=== PATIENT | male | born 1950 | race Hispanic/Latino ===

== ENCOUNTER 2021-11-02 06:58 | Outpatient (CLI) | payer BC, OTHER ==
--- NOTE | 2021-11-02 08:31 | Cat Scan Report ---
CT CHEST WITHOUT CONTRAST INDICATION / CLINICAL INFORMATION: Z87.891 F71.21. 20+ year smoking history. TECHNIQUE: Axial CT images were obtained through the chest without contrast. All CT scans at this [facility] ation are performed using CT dose reduction for ALARA by means of automated exposure control. COMPARISON: None available. FINDINGS: HEART: No significant abnormality. CORONARY ARTERY CALCIFICATION: Moderate to severe THORACIC AORTA: Mild atherosclerotic calcification without acute abnormality. MEDIASTINUM / TOM: No significant abnormality. PLEURA: No pleural effusion. No pneumothorax. LUNGS: Mild centrilobular and paraseptal emphysematous changes are identified which are most pronounc ed in the upper lung zones. No evidence for acute parenchymal disease, interstitial disease, nodule o r mass. ADDITIONAL FINDINGS: None. UPPER ABDOMEN: No significant abnormality. SKELETAL SYSTEM: No significant abnormality. IMPRESSION: 1. Mild emphysematous changes. No suspicious pulmonary lesion is detected. 2. Moderate to severe coronary artery calcifications. Signer Name: Rah Grimes Jr, MD Signed: 11/02/2021 8:27 AM Workstation Name: [id number]
== END 2021-11-02 06:59 | disposition home or self-care (01) ==
LOC: CT 06:58
DX: Z12.2 Encounter for screening for malignant neoplasm of respiratory organs (principal); J43.2 Centrilobular emphysema; I25.10 Atherosclerotic heart disease of native coronary artery without angina pectoris; Z87.891 Personal history of nicotine dependence
CPT/HCPCS: 71250